=== PATIENT | male | born 1955 | race Caucasian/White ===

== ENCOUNTER 2021-01-04 14:46 | Outpatient (CLI) | payer MEDICARE, SELFPAY ==
--- NOTE | ~2021-01-04 | CT_ITS ---
EXAMINATION: CT soft tissue neck w con DATE: 01/04/2021 15:18 INDICATION: Localized enlarged lymph nodes TECHNIQUE: Computed tomography (CT) of the neck was performed with 75 mL Omnipaque-350 intravenous co ntrast. Automated exposure control and iterative reconstruction technique were employed. The dose-yolanda gth product was 374.45 mGy-cm. COMPARISON: None FINDINGS: Thyroid gland is unremarkable. Submandibular and parotid glands are normal and symmetric. 1.7 x 1.3 x 1.0 cm enhancing left ventricular mass with lower central attenuation suspicious for a centrally ne crotic lymph node which could be either suppurative or metastatic in etiology. There are additional s cattered normal-sized lymph nodes in the neck. No other masses identified. The vasculature is paten t and normal in caliber. Airway is unremarkable. Orbits are normal. The visualized portions of the p aranasal sinuses as well as the mastoid air cells and middle ear cavities are clear. 3 mm anterolisth esis C4 on C5 and 2 mm retrolisthesis C5 on C6. There is severe disc height loss with Modic type III sclerotic endplate changes at C5-C6. Moderate to severe disc height loss at C6-C7, moderate disc heig ht loss at C3-C4 and mild disc height loss at C4-C5 and C7-T1. 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 IMPRESSION: 1. 1.7 x 1.3 x 1.0 cm peripherally enhancing likely centrally necrotic left submandibular lymph node which could represent either a suppurative lymph node or metastatic disease. Reviewed, dictated and finalized at location A. IMPRESSION: 1. 1.7 x 1.3 x 1.0 cm peripherally enhancing likely centrally necrotic left sub mandibular lymph node which could represent either a suppurative lymph node or metastatic disease.
--- NOTE | ~2021-01-04 | CT_ITS ---
EXAMINATION: CT lung screening DATE: 01/04/2021 15:18 INDICATION: Z87.891 - Personal history of nicotine dependence TECHNIQUE: Computed tomography (CT) of the chest was performed without intravenous contrast. Addition al 3D reconstructions utilizing coronal maximum intensity projection (MIP) were performed. Automated exposure control and iterative reconstruction technique were employed. The dose-length product was 16 4.70 mGy-cm. COMPARISON: None FINDINGS: Lungs are clear with no suspicious pulmonary nodules, pneumonia or other pulmonary infiltrates, pulmo nary edema or pleural effusion. Heart size is normal. Atherosclerotic coronary artery calcification. No pericardial effusion. Thoracic aorta is normal in caliber. No pathologically enlarged thoracic lym phadenopathy. Bilateral gynecomastia. Minimal upper thoracic levocurvature. IMPRESSION: 1. Lung-RADS category 1: Negative. Continue annual screening with noncontrast low-dose chest CT in 12 months. Reviewed, dictated and finalized at location A. IMPRESSION: 1. Lung-RADS category 1: Negative. Continue annual screening with noncontrast l ow-dose chest CT in 12 months.
[2021-01-04 15:05] LABS: Estimated Glomerular Filt Rate > 60
== END 2021-01-04 14:47 ==
PROVIDERS: PCP Family Medicine; Visit Provider Physician Assistant Medical
DX: Z12.2 Encounter for screening for malignant neoplasm of respiratory organs (principal); Z87.891 Personal history of nicotine dependence; R59.0 Localized enlarged lymph nodes
CPT/HCPCS: 70491; 71271; Q9967

== ENCOUNTER 2021-01-16 08:10 | Outpatient (CLI) | payer MEDICARE, SELFPAY ==
--- NOTE | 2021-01-16 08:00 | ECG_ITS ---
Measurements Intervals [place] Rate: 82 P: 80 VA: 215 QRS: 26 QRSD: 98 T: 71 QT: 328 QTc: 384 Interpretive Statements SINUS RHYTHM WITH FIRST DEGREE AV BLOCK POSSIBLE LEFT ATRIAL ENLARGEMENT CANNOT RULE OUT SEPTAL INFARCT, AGE INDETERMINATE BASELINE WANDER- V4-V5 ABNORMAL ECG Electronically Signed On 01-16-2021 8:31:40 CDT by Renny Aponte D.O.
[2021-01-16 09:09] LABS: Anion Gap 7 mmol/L (8-16); Blood Urea Nitrogen 24 mg/dL (9-20); Carbon Dioxide 29 mmol/L (22-30); Chloride 100 mmol/L (98-107); Estimated Glomerular Filt Rate > 60; Glucose 210 mg/dL (75-110); Potassium 4.1 mmol/L (3.4-5.0); Sodium 136 mmol/L (137-145)
== END 2021-01-16 08:11 | disposition home or self-care (01) ==
LOC: ANHSURGERY 08:13
PROVIDERS: Anesthesiology; PCP Family Medicine; Visit Provider Otolaryngology
DX: E11.65 Type 2 diabetes mellitus with hyperglycemia (principal)
CPT/HCPCS: 36415; 80048; 93005

== ENCOUNTER → 2021-01-19 00:18 | Outpatient (CLI) | payer MEDICARE, SELFPAY ==
[2021-01-19 19:44] LABS: SARS-CoV-2 RNA PCR Negative
== END ==
PROVIDERS: PCP Family Medicine; Visit Provider Otolaryngology
DX: Z01.812 Encounter for preprocedural laboratory examination (principal); Z20.822 Contact with and (suspected) exposure to COVID-19
CPT/HCPCS: C9803; U0003; U0005

== ENCOUNTER 2021-01-22 02:34 | Day surgery (SDC) | payer MEDICARE, SELFPAY ==
[2021-01-11 13:39] VITALS: BMI 23.6
--- NOTE | 2021-01-21 10:18 | WPDANESEPPF ---
Anes - Initial Pre Proc Eval Procedure: Operation Date: 01/22/21 07:30 Proposed Procedures p Left Submandibular Lymph Node Biopsy - Octavio Addison MD Date/Time: 01/21/21 10:18 Surgeon: Octavio Addison MD Pre Op Diagnosis: enlarged lymph node left submandibular Patient Data Age: 65 Gender: M Height: 1.75 m Weight: 72.72 kg Allergies Allergy/AdvReac Type Severity Reaction Status Date / Time No Known Allergies Allergy Verified 01/22/21 06:22 Home Medications Medication Instructions Recorded Confirmed Type blood sugar diagnostic #100 each 11/01/19 01/15/21 Rx lancets 33 gauge #100 each 11/01/19 01/15/21 Rx empagliflozin 10 mg tablet 10 mg PO DAILY #90 tablet 01/02/20 01/22/21 Rx dulaglutide 1.5 mg/0.5 mL 1.5 mg SUB-Q WEEKLY #9 ml 08/22/20 01/22/21 Rx subcutaneous pen injector tadalafil 20 mg tablet 20 mg PO DAILY PRN #27 tablet 08/22/20 01/22/21 Rx doxycycline monohydrate 100 mg 100 mg PO BID #60 cap 01/15/21 01/22/21 Rx capsule ECG: Date of Service: 01/16/21 Procedure(s): CA 12 lead EKG Accession Number(s): [id number] cc: ~ Measurements Intervals [place] Rate: 82 P: 80 SC: 215 QRS: 26 QRSD: 98 T: 71 QT: 328 QTc: 384 Interpretive Statements SINUS RHYTHM WITH FIRST DEGREE AV BLOCK POSSIBLE LEFT ATRIAL ENLARGEMENT CANNOT RULE OUT SEPTAL INFARCT, AGE INDETERMINATE BASELINE WANDER- V4-V5 ABNORMAL ECG Electronically Signed On 01-16-2021 8:31:40 CDT by Renny Aponte D.O. Dictated By: Renny Aponte DO 01/16/21 0831 Patient hx anesthesia problems: none Family hx anesthesia problems: none PMFSH Past Medical History Medical History Alcoh dep NEC/NOS, unspec Chronic viral hepatitis Submandibular lymphadenopathy Type 2 diabetes mellitus with hyperglycemia Family History Family History Mother Diabetes mellitus Patient's mother is Family history of kidney disease Father Patient's father is Family history of cardiovascular disease Other Family history of mental disorder Social History Social History Smoking status: Former smoker Smoking end date: 10/08/06 Additional smoking assessment comments: STATES 1-2PK/DAY/30+ YRS, QUIT AGE 50 Alcohol intake: never Substance use: never Substance use type: does not use Living arrangements: with friend(s) Spiritual care concerns: No Anes - Eval Final PreProcedure Day of Procedure 01/21/21 10:18 Patient weight: normal Heart: regular rate and rhythm Lungs: clear to auscultation and normal air movement Airway: Mallampati scale class II Neurological: alert and oriented Last oral intake: >/= 8 hours ASA classification: III Emergent: no Anesthetic plan: proceed Anesthesia type and monitoring: general GIVS and LMA Informed Consent: The patient's anesthetic plan and its attendant risks and benefits were discussed with the patient/family/POA. Questions were solicited and answers provided to the satisfaction of the patient/family/POA.
[2021-01-22] VITALS (7 sets, daily range): BP systolic 112–151; BP diastolic 77–99; PULSE 61–71; RESP 12–16; TEMP 36.1–36.7; O2SAT 99–100
--- NOTE | 2021-01-22 05:32 | PM.HPGS ---
History of Present Illness History of Present Illness Consent: Risks, benefits, and alternatives have been discussed and questions answered. Patient agrees to proceed with procedure. Chief complaint: enlarged lymph node left submandibular Narrative: Oren De Los Santos is a 65 year old male Has an enlarged left submandibular node he has been treated with various courses of antibiotics he has had several episodes of acute infection and wisdom tooth on the left Review of Systems Review of Systems: All systems reviewed & are unremarkable except as noted in HPI and below PMFSH Past Medical History Medical History Alcoh dep NEC/NOS, unspec Chronic viral hepatitis Submandibular lymphadenopathy Type 2 diabetes mellitus with hyperglycemia Family History Family History Mother Diabetes mellitus Patient's mother is Family history of kidney disease Father Patient's father is Family history of cardiovascular disease Other Family history of mental disorder Social History Social History Smoking status: Former smoker Smoking end date: 10/08/06 Additional smoking assessment comments: STATES 1-2PK/DAY/30+ YRS, QUIT AGE 50 Alcohol intake: never Substance use: never Substance use type: does not use Living arrangements: with friend(s) Spiritual care concerns: No Meds Home Medications and Allergies Home Medications Medication Instructions Recorded Confirmed Type blood sugar diagnostic #100 each 11/01/19 01/15/21 Rx lancets 33 gauge #100 each 11/01/19 01/15/21 Rx empagliflozin 10 mg tablet 10 mg PO DAILY #90 tablet 01/02/20 01/15/21 Rx dulaglutide 1.5 mg/0.5 mL 1.5 mg SUB-Q WEEKLY #9 ml 08/22/20 01/15/21 Rx subcutaneous pen injector tadalafil 20 mg tablet 20 mg PO DAILY PRN #27 tablet 08/22/20 01/15/21 Rx clindamycin HCl See Rx Instructions .ROUTE .COMPLEX 01/11/21 01/15/21 History doxycycline monohydrate 100 mg 100 mg PO BID #60 cap 01/15/21 01/15/21 Rx capsule Allergies Allergy/AdvReac Type Severity Reaction Status Date / Time No Known Allergies Allergy Verified 01/11/21 13:37 Exam Narrative: Exam Narrative: chest clear heart with murmurs abdomen soft straight is negative a 2-3 cm left submandibular mass Assessment and Plan Additional Plan plan is it excisionally biopsy or excision of the left submandibular node
--- NOTE | 2021-01-22 05:33 | WPDHPUPDATE1 ---
History and Physical Update Update Date/Time: 01/22/21 05:33 History and Physical has been reviewed, including an updated exam of the patient. There are NO changes in the patient's condition. Risks, benefits, and alternatives have been discussed and questions answered. Patient agrees to proceed with procedure.
[2021-01-22] MEDS: LACTATED RINGERS 1,000 ML 30 ML IV CONT (06:36)
[2021-01-22 06:43] LABS: Glucose Point of Care 186 (65-105)
[2021-01-22] MEDS: ceFAZolin 2 GM/D5W 50 ML 2 GM/50 ML BAG IVPB (07:20)
[2021-01-22] MEDS: LIDO 1%/EPINEPHRINE 1:100,000 50 ML VIAL INFILTRATE (07:33)
--- NOTE | 2021-01-22 07:43 | SUR.OPER ---
Frozen section sent with Landon Peguero RN received in pathology by Fran
--- NOTE | 2021-01-22 07:55 | PM.PROC ---
Procedure Note - Detailed Date of procedure: 01/23/21 Pre-op diagnosis: enlarged lymph node left submandibular Post-op diagnosis: same Procedure performed: Excision submandibular lymph node or mass Description of procedure: Patient was prepped and draped in the usual fashion elliptical incision made injected xylocaine with adrenaline elliptical advanced as elevated the mass was removed scar on the deep deep area was removed hemostasis was obtained with bipolar electrocautery and closed in layers of chromic and Monocryl Anesthesia: GLMA Surgeon: Octavio Addison MD Estimated blood loss (mL): 10 Drains: No Packing: No Pathology: yes Complications: No immediate complications Condition: stable Disposition: PACU Findings: Infected lymph node
[2021-01-22 08:30] LABS: Glucose Point of Care 160 (65-105)
[2021-01-22] MEDS: fentaNYL CITRATE INJ (*CRX) 100 MCG/2 ML VIAL 25 MCG IV PUSH ×2 (08:36→08:39)
[2021-01-22] MEDS: oxyCODONE HCL (*CRX) 5 MG TAB IR PO (09:16)
== END 2021-01-22 09:38 | disposition home or self-care (01) ==
PROVIDERS: PCP Family Medicine; Visit Provider Otolaryngology
PROC: (CPT 21552; principal; 2021-01-22 07:30)
DX: K12.2 Cellulitis and abscess of mouth (principal); E11.9 Type 2 diabetes mellitus without complications; B18.9 Chronic viral hepatitis, unspecified; Z87.891 Personal history of nicotine dependence
CPT/HCPCS: 21552; 82948; 88305; 88331; A9270; C9803; J0690; J2250; J2405; J2704; J3010; J7120; U0003; U0005

== ENCOUNTER 2021-02-28 10:07 | Emergency (ER) | payer MEDICARE, SELFPAY ==
--- NOTE | 2021-02-28 10:12 | ED.WOUNDLAC ---
HPI - Wound/Laceration General Chief Complaint: Wound/Laceration Stated Complaint: KNEE LACERATION Time Seen by Provider: 02/28/21 10:25 Source: patient and RN notes reviewed Mode of arrival: ambulatory Limitations: no limitations History of Present Illness HPI narrative: 65-year-old male presents concern for laceration to left knee that he sustained just to arrival while using a die repairer trimmer dies. Reports he lacerated his knee with a die repairer trimmer dies. He denies any decreased strength, sensation, range of motion in the knee. He is not up-to-date on his tetanus vaccine. Extremity Location: Left: knee Related Data Home Medications Medication Instructions Recorded Confirmed aspirin [Baby Aspirin] 81 mg PO DAILY 02/28/21 02/28/21 Allergies Allergy/AdvReac Type Severity Reaction Status Date / Time No Known Allergies Allergy Verified 02/28/21 10:16 Review of Systems Review of Systems: Narrative: CONSTITUTIONAL: Denies malaise, chills, sweats, or fever. CARDIOVASCULAR: Denies chest pain, palpitations, or edema. RESPIRATORY: Denies cough or dyspnea. SKIN: Reports laceration to the left knee MUSCULOSKELETAL: Denies musculoskeletal pain, decreased strength, decreased range of motion NEUROLOGIC: Denies numbness, weakness All systems reviewed & are unremarkable except as noted in HPI and below PMFSH Past Medical History Medical History Alcoh dep NEC/NOS, unspec Chronic viral hepatitis Submandibular lymphadenopathy Type 2 diabetes mellitus with hyperglycemia Family History Family History Mother Diabetes mellitus Patient's mother is Family history of kidney disease Father Patient's father is Family history of cardiovascular disease Other Family history of mental disorder Social History Social History Smoking status: Former smoker Smoking end date: 10/08/06 Additional smoking assessment comments: STATES 1-2PK/DAY/30+ YRS, QUIT AGE 50 Alcohol intake: never Substance use: never Substance use type: does not use Spiritual care concerns: No Comments At time of signature, agree with nursing past medical, surgical, social and family history. There is no relevant family history pertinent to the presenting complaint Exam Narrative: Exam Narrative: GENERAL: Well-appearing, well-nourished, and in no acute distress. HEAD: Normocephalic, atraumatic. EYES: PERRLA, conjunctivae clear, and EOMI. ENT: Mucous membranes moist. Oropharynx without edema, erythema or lesions. NECK: Supple. No lymphadenopathy CHEST: Clear to auscultation. No respiratory distress. HEART: Regular rate and rhythm. SKIN: Warm, dry. 2 cm irregular laceration into the subcutaneous tissue noted to the lateral edge of the left knee, gaping. Bleeding noted MUSCULOSKELETAL: Regular strength, sensation, range of motion to left knee NEURO: Alert and oriented x3. PSYCH: Normal mood and affect Course Course Emergency Course: Patient is aware of diagnosis, understands and agrees to treatment plan. Anticipatory guidance given. Patient agrees to follow-up as directed and is aware of reasons to seek care at the emergency department. Portions of this record may have been created with voice recognition software Vital Signs Vital signs: Vital Signs Temperature 97.6 F 02/28/21 10:18 Pulse Rate 81 02/28/21 10:18 Respiratory Rate 20 02/28/21 10:18 Blood Pressure 121/75 02/28/21 10:18 Pulse Oximetry 98 02/28/21 10:18 Temperature 97.6 F 02/28/21 10:18 Pulse Rate 81 02/28/21 10:18 Respiratory Rate 20 02/28/21 10:18 Blood Pressure 121/75 02/28/21 10:18 Pulse Oximetry 98 02/28/21 10:18 Reviewed. Procedures Laceration Laceration 1: Date: 02/28/21 Site: lower extremity Description: irregular Depth: simp
[2021-02-28 10:18] VITALS: BP 121/75; PULSE 81; RESP 20; TEMP 36.4; O2SAT 98
[2021-02-28] MEDS: TETANUS,DIPHTHERIA,AC PERTUSSIS ADULT (0.5 ML) BOOSTRIX IM (10:37)
== END 2021-02-28 11:21 | disposition home or self-care (01) ==
PROVIDERS: Emergency Provider Nurse Practitioner; PCP Family Medicine
DX: S81.012A Laceration without foreign body, left knee, initial encounter (principal); W29.3XXA Contact with powered garden and outdoor hand tools and machinery, initial encounter; Z23 Encounter for immunization; Z87.891 Personal history of nicotine dependence; E11.9 Type 2 diabetes mellitus without complications
CPT/HCPCS: 12001; 90471; 90715; 99212; G0463

== ENCOUNTER 2021-06-14 14:44 | Outpatient (CLI) | payer MEDICARE, SELFPAY ==
--- NOTE | ~2021-06-14 | CT_ITS ---
EXAMINATION: CT soft tissue neck wo con DATE: 06/14/2021 15:28 INDICATION: Hypertrophy of tonsils. TECHNIQUE: Computed tomography (CT) of the neck was performed without intravenous contrast. Automated exposure control and iterative reconstruction technique were employed. The dose-length product was 6 05.66 mGy-cm. COMPARISON: Neck CT 01/04/2021 FINDINGS: There is a lipoma in right posterior scalp. There are no pathologically enlarged lymph node s. The palatine tonsils are unremarkable. There is mild mucosal thickening in the paranasal sinuses. The mastoid air cells are normal. There is severe cervical spondylosis. IMPRESSION: 1. No abscess. Reviewed, dictated and finalized at location A. IMPRESSION: 1. No abscess.
== END 2021-06-14 14:45 | disposition home or self-care (01) ==
PROVIDERS: PCP Family Medicine; Visit Provider Otolaryngology
DX: J35.1 Hypertrophy of tonsils (principal)
CPT/HCPCS: 70490

== ENCOUNTER 2021-07-18 15:44 | Emergency (ER) | payer MEDICARE, SELFPAY ==
--- NOTE | 2021-07-18 15:52 | ED.EYEPROB ---
HPI - Eye Problem General Chief complaint: Eye Problems Stated complaint: EYE INJURY Time Seen by Provider: 07/18/21 15:52 Source: patient and RN notes reviewed Mode of arrival: ambulatory Limitations: no limitations History of Present Illness HPI Narrative: 66-year-old male presents with concern for right eye injury. He reports yesterday while deer hunting he poked himself in the eye with a stick on accident. He reports pain, light sensitivity, watery drainage, blurry vision. He denies crusty drainage, purulent discharge. Denies itching. Denies intervention MD chief complaint: eye injury Related Data Home Medications Medication Instructions Recorded Confirmed aspirin [Baby Aspirin] 81 mg PO DAILY 02/28/21 07/18/21 Allergies Allergy/AdvReac Type Severity Reaction Status Date / Time iohexol Allergy Other Verified 07/18/21 15:51 [From contrast - CT, X-RAY] Review of Systems Review of Systems: CONSTITUTIONAL: Denies malaise, chills, sweats, or fever. EYES: Reports right eye blurry vision, pain, redness ENT: Reports rhinorrhea SKIN: Denies lacerations, abrasion All systems reviewed & are unremarkable except as noted in HPI and below PMFSH Past Medical History Medical History Alcoh dep NEC/NOS, unspec Chronic viral hepatitis Submandibular lymphadenopathy Type 2 diabetes mellitus with hyperglycemia Family History Family History Mother Diabetes mellitus Patient's mother is Family history of kidney disease Father Patient's father is Family history of cardiovascular disease Other Family history of mental disorder Social History Social History Smoking end date: 10/08/06 Additional smoking assessment comments: STATES 1-2PK/DAY/30+ YRS, QUIT AGE 50 Alcohol intake: never Substance use: never Substance use type: does not use Spiritual care concerns: No Comments At time of signature, agree with nursing past medical, surgical, social and family history. There is no relevant family history pertinent to the presenting complaint Exam Narrative: GENERAL: Well-appearing, well-nourished, and in no acute distress. HEAD: Normocephalic, atraumatic. EYES: PERRLA, and EOMI. right sclera injected, conjunctivae normal, corneal abrasion noted upon Luque lamp exam, see note ENT: Nares clear. Mucous membranes moist. NECK: Supple. CHEST: No respiratory distress. Speaks in full sentences. HEART: Regular rate and rhythm. SKIN: Warm, dry, no visible rash. NEURO: Alert and oriented x3. PSYCH: Normal mood and affect Course Course Emergency Course: Patient is aware of diagnosis, understands and agrees to treatment plan. Anticipatory guidance given. Patient agrees to follow-up as directed and is aware of reasons to seek care at the emergency department. Portions of this record may have been created with voice recognition software Vital Signs Vital signs: Reviewed. Procedures Other Procedure Procedure 1: Other Procedure: Tetracaine 1 gtt instilled in right eye, fluorescein stain applied. Corneal abrasion noted upon luque lamp exam above the pupil. Eye washed with NS 100 ml. No foreign bodies or Antoine sign noted. MDM - Eye Problem MDM Narrative Medical decision making narrative: My consideration of the following conditions may be warranted for the presenting problem, they are not final diagnoses: Bacterial conjunctivitis, allergic conjunctivitis, viral conjunctivitis, foreign body, blepharitis, chalazion, hordeolum, corneal abrasion, preseptal cellulitis, orbital cellulitis. No evidence of proptosis, ophthalmoplegia, vision loss, pain with eye movement. Exam findings show no acute concerns or changes; patient is non-toxic appearing and is in no distress. Patient is appropriate for outpatient treatment and follow-up.
[2021-07-18 15:54] VITALS: BP 119/83; PULSE 75; RESP 16; TEMP 36.9; O2SAT 99
== END 2021-07-18 16:18 | disposition home or self-care (01) ==
PROVIDERS: Emergency Provider Nurse Practitioner; PCP Family Medicine
DX: S05.01XA Injury of conjunctiva and corneal abrasion without foreign body, right eye, initial encounter (principal); W22.8XXA Striking against or struck by other objects, initial encounter; E11.9 Type 2 diabetes mellitus without complications; Z79.82 Long term (current) use of aspirin
CPT/HCPCS: 99213; A9270; G0463

== ENCOUNTER 2021-10-14 11:21 | Outpatient (CLI) | payer MEDICARE, SELFPAY ==
[2021-10-14 12:01] LABS: Anion Gap 6 mmol/L (8-16); Blood Urea Nitrogen 20 mg/dL (9-20); Calcium 9.4 mg/dL (8.4-10.2); Carbon Dioxide 30 mmol/L (22-30); Chloride 97 mmol/L (98-107); Estimated Glomerular Filt Rate > 60; Glucose 266 mg/dL (65-110); Potassium 4.1 mmol/L (3.4-5.0); Sodium 133 mmol/L (137-145)
== END 2021-10-14 11:22 | disposition home or self-care (01) ==
LOC: ANHSURGERY 11:27
PROVIDERS: Anesthesiology; PCP Family Medicine; Visit Provider Otolaryngology
DX: E11.65 Type 2 diabetes mellitus with hyperglycemia (principal); Z01.818 Encounter for other preprocedural examination
CPT/HCPCS: 36415; 80048

== ENCOUNTER 2021-10-15 00:27 | Day surgery (SDC) | payer MEDICARE, SELFPAY ==
[2021-10-09 13:14] VITALS: BMI 22.9
--- NOTE | 2021-10-09 13:20 | PC.NURSE ---
Report to the Outpatient Waiting Room, entrance under the green pavilion located off [facility], at time ___614____ on date __10/15/21 . OR Time: ___814 . - You will be asked a series of questions to screen for COVID 19 for your protection. - A mask is required within the hospital. - No visitors are allowed at this time. Preoperative COVID Testing Requirements: No COVID Test needed if: (proof is required; if not received patient will have Rapid Test prior to entry) - Patient has received COVID Vaccine at least 14 days prior to procedure date or - Patient has positive COVID test result within last 90 days of surgery date. COVID Test needed if above criteria is not met If not COVID vaccinated a COVID test must be conducted within 72 hours of surgery and patient is asked to isolate self from time of testing until procedure. You will go to the [facility] for your COVID testing. The [facility] is located at the corner of [address] from [facility]. You will only be called if COVID results are positive and your surgeon may reschedule your elective surgery date. Patients may have clear liquids (water, carbonated beverages, clear teas, apple juice) until 3 hours prior to surgery with a maximum of 20 ounces.([id number]) - No food from midnight until time of surgery - Infants may have breast milk until 4 hours before surgery, formula 6 hours prior to surgery. - Children will be allowed to drink immediately following surgery. If applicable, please bring a bottle or sippy cup to assist with drinking. Juice, water, soda, and popsicles are readily available. For infants on formula, please bring formula the day of surgery. Pacifiers are allowed. Take the following medications with a SIP of water the morning of surgery: _NONE__ Medications to discontinue per physician _ASPIRIN INSTRUCTED BY DR. BARNETT__ Date to take last dose Please no make-up, nail luxembourger, hairspray, perfume, deodorant, or body powder the day of surgery. No jewelry (including any body piercings) or valuables the day of surgery, leave them at home. Please take a shower or bath the night before, or the morning of, surgery with an antibacterial soap. Wear comfortable, loose fitting clothing. Children are encouraged to wear pajamas. - Jewelry must be removed prior to entering the operating room. Rings and piercings that are not removed may be cut off. - The hospital will not accept responsibility for valuables. - Please leave all valuables, including medications, at home the day of surgery. If you are going home after surgery, a licensed hydraulic lift driver must drive you home. - NO public transportation without another adult. - We recommend that an adult stay with you for 24 hours following discharge. - We also recommend that you do not drive, make important decision, drink alcoholic beverages, or take any drugs that were not prescribed by your health care provider for at least 24 hours after your discharge time. For Pediatric surgeries, we recommend two adults accompany the child home (only one inside the building at this time). Follow any additional instructions given to you from your surgeon. Telephone instructions given to ___PT and asked if any additional questions and then verbalized understanding. Patient advised to call surgeon office or pre surgery nurse liaison [phone] if any additional questions.
--- NOTE | 2021-10-14 06:42 | PM.HPGS ---
History of Present Illness History of Present Illness Consent: Risks, benefits, and alternatives have been discussed and questions answered. Patient agrees to proceed with procedure. Chief complaint: hypertrophic tonsils Narrative: Oren De Los Santos is a 66 year old male with a long history of asymmetric enlargement of his tonsils pain and unresponsive to prolonged antibiot Review of Systems Review of Systems: All systems reviewed & are unremarkable except as noted in HPI and below PMFSH Past Medical History Medical History Alcoh dep NEC/NOS, unspec Chronic viral hepatitis Submandibular lymphadenopathy Type 2 diabetes mellitus with hyperglycemia Family History Family History Mother Diabetes mellitus Patient's mother is Family history of kidney disease Father Patient's father is Family history of cardiovascular disease Other Family history of mental disorder Social History Social History Smoking status: Former smoker Tobacco type: cigarettes Second hand tobacco smoke exposure: No Smoking end date: 10/08/06 Additional smoking assessment comments: STATES SMOKED 1-2PK/DAY/30YRS-QUIT AGE 50 Alcohol intake: never Substance use: never Substance use type: does not use Spiritual care concerns: No Comments medical family social history unremarkable Meds Home Medications and Allergies Home Medications Medication Instructions Recorded Confirmed Type blood sugar diagnostic #100 each 11/01/19 10/09/21 Rx lancets 33 gauge #100 each 11/01/19 10/09/21 Rx aspirin [Baby Aspirin] 81 mg PO DAILY 02/28/21 10/09/21 History empagliflozin 10 mg tablet See Rx Instructions .ROUTE 03/27/21 10/09/21 Rx .COMPLEX #90 tablet tadalafil 20 mg tablet 20 mg PO DAILY PRN #60 tablet 03/27/21 10/09/21 Rx dulaglutide 1.5 mg/0.5 mL 1.5 mg SUB-Q WEEKLY #9 ml 10/02/21 10/09/21 Rx subcutaneous pen injector Allergies Allergy/AdvReac Type Severity Reaction Status Date / Time iohexol Allergy Other Verified 10/09/21 13:09 [From contrast - CT, X-RAY] Exam Narrative: asymmetric enlargement of his tonsils chest clear heart without murmurs abdomen soft Assessment and Plan Additional Plan plan tonsillectomy
--- NOTE | 2021-10-14 09:18 | W.PM.PROC2 ---
Procedure Note - Detailed Date of Procedure 10/14/21 Pre-op Diagnosis hypertrophic tonsils Surgeon Octavio Addison MD
[2021-10-15] VITALS (8 sets, daily range): BP systolic 125–169; BP diastolic 81–97; PULSE 60–79; RESP 14–20; TEMP 36.7–36.9; O2SAT 98–100; BMI 23.1
--- NOTE | 2021-10-15 05:59 | WPDHPUPDATE1 ---
History and Physical Update Update Date/Time: 10/15/21 05:59 History and Physical has been reviewed, including an updated exam of the patient. There are NO changes in the patient's condition. Risks, benefits, and alternatives have been discussed and questions answered. Patient agrees to proceed with procedure.
[2021-10-15] MEDS: ACETAMINOPHEN 500 MG TABLET 1000 MG PO (07:05)
--- NOTE | 2021-10-15 07:15 | WPDANESEPPF ---
Anes - Initial Pre Proc Eval Procedure: Operation Date: 10/15/21 08:45 Proposed Procedures p Tonsillectomy - Octavio Addison MD Date/Time: 10/15/21 07:15 Surgeon: Octavio Addison MD Pre Op Diagnosis: hypertrophic tonsils Patient Data Age: 66 Gender: M Height: 1.75 m Weight: 71.2 kg Last Vital Signs Temp 36.7 C 10/15/21 07:11 Pulse 79 10/15/21 07:11 Resp 20 10/15/21 07:11 BP 143/81 H 10/15/21 07:11 Pulse Ox 98 10/15/21 07:11 Allergies Allergy/AdvReac Type Severity Reaction Status Date / Time iohexol Allergy Other Verified 10/15/21 06:53 [From contrast - CT, X-RAY] Home Medications Medication Instructions Recorded Confirmed Type blood sugar diagnostic #100 each 11/01/19 10/09/21 Rx lancets 33 gauge #100 each 11/01/19 10/09/21 Rx aspirin [Baby Aspirin] 81 mg PO DAILY 02/28/21 10/15/21 History empagliflozin 10 mg tablet See Rx Instructions .ROUTE 03/27/21 10/15/21 Rx .COMPLEX #90 tablet tadalafil 20 mg tablet 20 mg PO DAILY PRN #60 tablet 03/27/21 10/15/21 Rx dulaglutide 1.5 mg/0.5 mL 1.5 mg SUB-Q WEEKLY #9 ml 10/02/21 10/15/21 Rx subcutaneous pen injector acetaminophen 300 mg-codeine 30 12.5 ml PO Q6H PRN #500 ml 10/14/21 Rx mg/12.5 mL (12.5 mL) oral solution Patient hx anesthesia problems: none Family hx anesthesia problems: none Results Review: All pre-operative results and documents have been reviewed as part of the pre-operative evaluation. [facility] Past Medical History Medical History Alcoh dep NEC/NOS, unspec Chronic viral hepatitis Submandibular lymphadenopathy Type 2 diabetes mellitus with hyperglycemia Surgical History Surgical History (Updated 10/15/21 @ 07:16 by Oren Damon MD) S/P appendectomy Family History Family History Mother Diabetes mellitus Patient's mother is Family history of kidney disease Father Patient's father is Family history of cardiovascular disease Other Family history of mental disorder Social History Social History Smoking status: Former smoker Tobacco type: cigarettes Second hand tobacco smoke exposure: No Smoking end date: 10/08/06 Additional smoking assessment comments: STATES SMOKED 1-2PK/DAY/30YRS-QUIT AGE 50 Alcohol intake: never Substance use: never Substance use type: does not use Living arrangements: alone Spiritual care concerns: No Anes - Eval Final PreProcedure Day of Procedure 10/15/21 07:15 Patient weight: normal Heart: regular rate and rhythm Lungs: clear to auscultation Airway: Mallampati scale class II Neurological: alert and oriented Last oral intake: >/= 8 hours ASA classification: II Emergent: no Anesthetic plan: proceed Anesthesia type and monitoring: general ETT and standard monitoring Results Review: All pre-operative results and documents have been reviewed as part of the pre-operative evaluation. Informed Consent: The patient's anesthetic plan and its attendant risks and benefits were discussed with the patient/family/POA. Questions were solicited and answers provided to the satisfaction of the patient/family/POA.
[2021-10-15] MEDS: LACTATED RINGERS 1,000 ML 30 ML IV CONT ×2 (07:22→09:14)
[2021-10-15 07:29] LABS: Glucose Point of Care 184 mg/dl (65-105)
--- NOTE | 2021-10-15 07:30 | SUR.PREOP ---
0650; PT VERY UPSET ABOUT PAIN MED PRESCRIPTION BEING UNAVAILABLE YESTERDAY. INFORMED PT HE WILL NEED TO SPEAK TO DR BARNETT THIS AM. PT VERBALIZED UNDERSTANDING.
[2021-10-15] MEDS: LIDO 1%/EPINEPHRINE 1:100,000 50 ML VIAL INFILTRATE (09:01)
--- NOTE | 2021-10-15 09:09 | W.PM.PROC2 ---
Procedure Note - Detailed Date of Procedure 10/15/21 Pre-op Diagnosis hypertrophic tonsils Post-op Diagnosis same Procedure Performed Tonsillectomy Surgeon Octavio Addison MD Anesthesia general Description of Procedure Patient was prepped and draped in usual fashion after induction of anesthesia. The McIvor mouth gag was inserted. The tonsils were removed dissection technique hemostasis was obtained electrocautery. The mouth was inspected for bleeding. When stabilized patient was awaken and brought to the recovery room in good condition. Drains No Packing No Pathology none sent Complications No immediate complications Condition stable Disposition PACU
[2021-10-15 09:30] LABS: Glucose Point of Care 153 mg/dl (65-105)
[2021-10-15] MEDS: fentaNYL CITRATE INJ (*CRX) 100 MCG/2 ML VIAL 25 MCG IV PUSH ×5 (09:30→09:50)
[2021-10-15] MEDS: ONDANSETRON INJ 4 MG/2 ML VIAL IV PUSH (09:57)
--- NOTE | 2021-10-15 10:34 | SUR.PHASEII ---
PHARMACY CALLED TO VERIFY THAT IT HAS SUFFICIENT PRESCRIBED PAIN MED WHICH IT DOES. PATIENT AWARE.
[2021-10-15] MEDS: Acetaminophen/HYDROcodone ELIXIR (*CRX) 7.5 MG/15 ML UDC PO (10:44)
== END 2021-10-15 11:28 | disposition home or self-care (01) ==
PROVIDERS: PCP Family Medicine; Visit Provider Otolaryngology
PROC: (CPT 42826; principal; 2021-10-15 08:45)
DX: C09.9 Malignant neoplasm of tonsil, unspecified (principal); J35.01 Chronic tonsillitis; E11.9 Type 2 diabetes mellitus without complications; Z79.84 Long term (current) use of oral hypoglycemic drugs; Z79.899 Other long term (current) drug therapy; Z87.891 Personal history of nicotine dependence
CPT/HCPCS: 42826; 36415; 80048; 82948; 88304; 88342; A9270; J0330; J1100; J2250; J2405; J2704; J3010; J7120

== ENCOUNTER 2021-10-18 12:16 | Emergency (ER) | payer MEDICARE, SELFPAY ==
[2021-10-18 12:22] VITALS: BP 162/96; PULSE 80; RESP 18; TEMP 36.6; O2SAT 98
[2021-10-18 12:23] VITALS: BP 162/96
--- NOTE | 2021-10-18 12:29 | ED.GENADULT ---
HPI - General Adult General Chief complaint: Unspecified Stated complaint: cant swallow Time Seen by Provider: 10/18/21 12:27 Source: patient Mode of arrival: ambulatory Limitations: no limitations History of Present Illness HPI narrative: Patient is a 66-year-old male complaining of being dehydrated due to difficulty swallowing ever since he had his tonsillectomy, unable to drink or eat anything times 4 days. Patient was told by his doctor to go to the emergency room for IV fluids. Patient denies any nausea, vomiting, chest pain, shortness of breath, abdominal pain, fever or chills. Related Data Home Medications Medication Instructions Recorded Confirmed aspirin 81 mg PO DAILY 02/28/21 10/15/21 Allergies Allergy/AdvReac Type Severity Reaction Status Date / Time iohexol Allergy Other Verified 10/18/21 12:26 [From contrast - CT, X-RAY] Review of Systems Review of Systems: All systems reviewed & are unremarkable except as noted in HPI and below Constitutional: Constitutional: Denies body ache(s), Denies chills, Denies excessive sweating, Denies fatigue, Denies fever(s), Denies headache(s), Denies lethargy, Denies malaise, Denies weakness and Denies weight loss Eyes: Eyes: Denies blurry vision, Denies change in vision and Denies loss of vision ENT: Denies dizziness, Denies ear discharge, Denies headache(s), Denies lip swelling, Denies epistaxis, Denies nasal congestion, Denies neck pain, Denies throat swelling and Denies tongue swelling Cardiovascular: Cardiovascular: Denies chest pain, Denies chest pain at rest, Denies chest pain with activity, Denies diaphoresis, Denies rapid heart rate, Denies edema, Denies irregular heart rhythm, Denies lightheadedness, Denies palpitations, Denies dyspnea and Denies dyspnea on exertion Respiratory: Respiratory: Denies chest congestion, Denies cough, Denies hemoptysis, Denies dyspnea and Denies dyspnea on exertion Gastrointestinal: Gastrointestinal: Denies abdominal pain, Denies melena, Denies hematochezia, Denies diarrhea, Denies nausea, Denies vomiting and Denies hematemesis Musculoskeletal: Musculoskeletal: Denies abnormal gait, Denies deformity, Denies joint swelling, Denies limited range of motion, Denies neck pain and Denies numbness Neurologic: Denies Abnormal speech present, Denies abnormal gait, Denies confusion, Denies dizziness, Denies headache(s), Denies focal weakness, Denies loss of vision, Denies numbness, Denies Other visual disturbances, Denies Sensory deficit (Neuro) and Denies weakness Psychiatric: Psychiatric: Denies confusion, Denies depression, Denies auditory hallucinations, Denies homicidal ideation and Denies suicidal ideation Endocrine: Endocrine: Denies cold intolerance, Denies excessive sweating, Denies fatigue, Denies heat intolerance and Denies palpitations Hematologic/Lymphatic: Hematologic/Lymphatic: Denies easy bleeding and Denies easy bruising Allergic/Immunologic: Allergic/Immunologic: Denies lip swelling, Denies throat swelling and Denies tongue swelling PMFSH Past Medical History Medical History (Updated 10/18/21 @ 15:15 by Tio Garcia MD) Alcoh dep NEC/NOS, unspec Chronic viral hepatitis Submandibular lymphadenopathy Type 2 diabetes mellitus with hyperglycemia Surgical History Surgical History (Updated 10/15/21 @ 10:27 by Ru Moses MD) History of tonsillectomy S/P appendectomy Family History Family History Mother Diabetes mellitus Patient's mother is Family history of kidney disease Father Patient's father is Family history of cardiovascular disease Other Family history of mental disorder Social History Social History Smoking status: Former smoker Tobacco type: cigarettes Second hand tobacco smoke exposure: No Smoking end date: 10/08/06 Additional smoking assessment co
[2021-10-18] MEDS: SODIUM CHLORIDE 0.9% IV 1,000 ML 999 ML IV CONT (12:33)
[2021-10-18 12:40] LABS: Basophils Percent Auto 0.5 % (0.2-1.2); Eosinophils Absolute Auto 0.1 K/mm3 (0-0.3); Eosinophils Percent Auto 0.9 % (0-4.4); Hematocrit 51.6 % (42.0-52.0); Hemoglobin 17.9 g/dL (14.0-18.0); Immature Granulocyte Absolute 0.01 K/mm3 (0.00-0.031); Immature Granulocyte Percent A 0.1 % (0-0.5); Lymphocytes Absolute Auto 1.49 K/mm3 (0.9-3.2); Lymphocytes Percent Auto 17.5 % (18.3-44.2); Mean Corpuscular HGB Conc 34.7 g/dl (32-36); Mean Corpuscular Hemoglobin 31.6 pg (26-34); Mean Platelet Volume 9.9 fl (7.4-10.4); Monocytes Percent Auto 11.5 % (2.6-8.5); Neutrophils Absolute Auto 5.9 K/mm3 (1.3-6.7); Neutrophils Percent Auto 69.5 % (45.5-73.1); Platelet Count Result 239 k/mm3 (150-375); Red Blood Count 5.67 M/mm3 (4.6-6.20); Red Cell Distribution Width 12.4 % (11.5-14.5); White Blood Count 8.5 K/mm3 (4.5-10.0)
[2021-10-18 12:55] LABS: Alanine Aminotransferase 20 U/L (4-50); Albumin Level 4.7 g/dL (3.5-5.1); Alkaline Phosphatase 69 U/L (38-126); Anion Gap 13 mmol/L (8-16); Aspartate Amino Transferase 27 U/L (17-59); Bilirubin,Total 2.6 mg/dL (0.2-1.3); Blood Urea Nitrogen 20 mg/dL (9-20); Calcium 9.6 mg/dL (8.4-10.2); Carbon Dioxide 25 mmol/L (22-30); Chloride 93 mmol/L (98-107); Estimated CRCL calculation 66 ml/min; Estimated Glomerular Filt Rate > 60; Glucose 183 mg/dL (65-110); Potassium 3.9 mmol/L (3.4-5.0); Sodium 131 mmol/L (137-145)
[2021-10-18 13:01] VITALS: BP 141/91; PULSE 89; RESP 16; O2SAT 98
[2021-10-18] MEDS: DEXAMETHASONE SOD PHOS INJ 4 MG/ML VIAL 10 MG IV PUSH (13:59)
[2021-10-18 14:01] VITALS: BP 145/90; PULSE 80; RESP 16; O2SAT 98
[2021-10-18] MEDS: LACTATED RINGERS 1,000 ML 999 ML IV CONT (14:28)
[2021-10-18 15:26] VITALS: BP 153/90; PULSE 78; RESP 18; O2SAT 98
== END 2021-10-18 15:36 | disposition home or self-care (01) ==
PROVIDERS: Emergency Provider Emergency Medicine; PCP Family Medicine
DX: R13.10 Dysphagia, unspecified (principal); E86.0 Dehydration; Z98.890 Other specified postprocedural states; E11.65 Type 2 diabetes mellitus with hyperglycemia; B18.9 Chronic viral hepatitis, unspecified; Z87.891 Personal history of nicotine dependence; Z79.899 Other long term (current) drug therapy; Z79.84 Long term (current) use of oral hypoglycemic drugs; Z79.82 Long term (current) use of aspirin
CPT/HCPCS: 36415; 80053; 85025; 96361; 96374; 99284; J1100; J7030; J7120

== ENCOUNTER 2022-03-24 20:53 | Emergency (ER) | payer MEDICARE, SELFPAY ==
[2022-03-24 20:56] VITALS: BP 119/85; PULSE 90; RESP 18; TEMP 36.4; O2SAT 98
[2022-03-24 21:32] LABS: Basophils Percent Auto 0.6 % (0.2-1.2); Eosinophils Absolute Auto 0.1 K/mm3 (0-0.3); Eosinophils Percent Auto 1.9 % (0-4.4); Hemoglobin 17.2 g/dL (14.0-18.0); Immature Granulocyte Absolute 0.03 K/mm3 (0.00-0.031); Immature Granulocyte Percent A 0.5 % (0-0.5); Lymphocytes Absolute Auto 0.52 K/mm3 (0.9-3.2); Lymphocytes Percent Auto 8.2 % (18.3-44.2); Mean Corpuscular HGB Conc 33.7 g/dl (32-36); Mean Corpuscular Hemoglobin 30.7 pg (26-34); Mean Corpuscular Volume 91.1 fl (80-100); Mean Platelet Volume 10.3 fl (7.4-10.4); Monocytes Absolute Auto 0.7 K/mm3 (0.1-0.6); Monocytes Percent Auto 10.8 % (2.6-8.5); Platelet Count Result 221 k/mm3 (150-375); White Blood Count 6.4 K/mm3 (4.5-10.0)
[2022-03-24 21:42] LABS: Alanine Aminotransferase 24 U/L (6-50); Albumin Level 4.6 g/dL (3.5-5.1); Alkaline Phosphatase 59 U/L (38-126); Anion Gap 12 mmol/L (8-16); Aspartate Amino Transferase 33 U/L (17-59); Bilirubin,Total 2.6 mg/dL (0.2-1.3); Blood Urea Nitrogen 18 mg/dL (9-20); Calcium 9.2 mg/dL (8.4-10.2); Carbon Dioxide 25 mmol/L (22-30); Chloride 98 mmol/L (98-107); Creatine Kinase 117 U/L (55-170); Estimated CRCL calculation 49 ml/min; Estimated Glomerular Filt Rate > 60; Glucose 64 mg/dL (65-110); Potassium 4.2 mmol/L (3.4-5.0); Sodium 135 mmol/L (137-145)
--- NOTE | 2022-03-24 21:43 | ED.GENADULT ---
HPI - General Adult General Chief complaint: Unspecified Stated complaint: dehydration post radiation treatments Time Seen by Provider: 03/24/22 21:04 Source: patient Mode of arrival: ambulatory Limitations: no limitations History of Present Illness HPI narrative: This is a 67 year old male that presents to the ER for dehydration. Reports history of throat cancer. He is currently undergoing radiation therapy. His last treatment was 3 days ago. Since his last treatment he has been unable to eat and drink properly. He has a horrible taste in his throat. Every time he tries to eat or drink it makes him want to throw up. He reported to the ER for further evaluation and management of possible dehydration. Denies fever. Related Data Home Medications Medication Instructions Recorded Confirmed empagliflozin 10 mg tablet 10 mg PO DAILY 01/16/22 03/21/22 (Jardiance) Allergies Allergy/AdvReac Type Severity Reaction Status Date / Time iohexol Allergy Other Verified 03/24/22 22:09 [From contrast - CT, X-RAY] Review of Systems Review of Systems: CONSTITUTIONAL: Denies fever ENT: Reports sore throat GASTROINTESTINAL: Reports nausea, vomiting All systems reviewed & are unremarkable except as noted in HPI and below PMFSH Past Medical History Medical History Alcoh dep NEC/NOS, unspec Chronic viral hepatitis Submandibular lymphadenopathy Type 2 diabetes mellitus with hyperglycemia Surgical History Surgical History History of tonsillectomy S/P appendectomy Family History Family History Mother Diabetes mellitus Patient's mother is Family history of kidney disease Father Patient's father is Family history of cardiovascular disease Other Family history of mental disorder Social History Social History Smoking packs per day: 1 Smoking cigarettes per day: 20.0 Years smoked: 20 Smoking pack-years: 20.00 Smoking status: Former smoker Tobacco type: cigarettes Second hand tobacco smoke exposure: No Smoking end date: 10/08/06 Additional smoking assessment comments: STATES SMOKED 1-2PK/DAY/30YRS-QUIT AGE 50 Alcohol intake: never Substance use: never Substance use type: does not use Spiritual care concerns: No Exam Narrative: GENERAL: Well-appearing, thin, and in no acute distress. HEAD: Normocephalic, atraumatic. EYES: EOMI. ENT: Nares clear, no rhinorrhea or epistaxis. Mucous membranes moist. Oropharynx with mild erythema NECK: Supple. No adenopathy or masses. CHEST: Clear to auscultation. No respiratory distress. No wheezes rales or rhonchi HEART: Regular rate and rhythm. No murmur heard. Normal peripheral pulses. EXTREMITIES: Normal range of motion. No edema. SKIN: Warm, dry, no rash. NEURO: No focal deficits. Alert and oriented x3. PSYCH: Normal mood and affect Course Vital Signs Vital signs: Vital Signs Temperature 97.6 F 03/24/22 20:56 Pulse Rate 90 03/24/22 20:56 Respiratory Rate 18 03/24/22 20:56 Blood Pressure 119/85 03/24/22 20:56 Pulse Oximetry 98 03/24/22 20:56 Oxygen Delivery Room Air 03/24/22 20:56 Temperature 97.6 F 03/24/22 20:56 Pulse Rate 70 03/24/22 21:55 Respiratory Rate 18 03/24/22 21:55 Blood Pressure 118/79 03/24/22 21:55 Pulse Oximetry 97 03/24/22 21:55 Oxygen Delivery Room Air 03/24/22 20:56 Medical Decision Making [facility] Narrative Medical decision making narrative: Patient presents to the ER for possible dehydration. History of throat cancer, is currently undergoing radiation therapy. Has not been eating or drinking much the last couple of days. His vitals are stable. CBC without concerning findings. Metabolic panel with normal-appearing kidney function. No concerning
[2022-03-24] MEDS: SODIUM CHLORIDE 0.9% IV 1,000 ML 999 ML IV CONT (21:50)
[2022-03-24 21:55] VITALS: BP 118/79; PULSE 70; RESP 18; O2SAT 97
[2022-03-24] MEDS: GLUCAGON FOR INJ 1 MG VIAL IM (22:14)
[2022-03-24 22:36] LABS: Glucose Point of Care 66 mg/dl (65-105)
[2022-03-24 23:26] LABS: Glucose Point of Care 84 mg/dl (65-105)
[2022-03-25 00:17] VITALS: PULSE 70; RESP 16; O2SAT 98
== END 2022-03-25 00:20 | disposition home or self-care (01) ==
PROVIDERS: Physician Assistant; Emergency Provider Emergency Medicine; PCP Family Medicine
DX: E11.649 Type 2 diabetes mellitus with hypoglycemia without coma (principal); C14.0 Malignant neoplasm of pharynx, unspecified; B18.9 Chronic viral hepatitis, unspecified; Z87.891 Personal history of nicotine dependence; Z79.84 Long term (current) use of oral hypoglycemic drugs; Z79.899 Other long term (current) drug therapy
CPT/HCPCS: 36415; 80053; 82550; 82948; 85025; 96361; 96365; 96372; 99284; J0131; J1610; J7030

== ENCOUNTER 2022-04-28 08:01 | Outpatient (CLI) | payer MEDICARE, SELFPAY ==
[2022-04-28 20:13] LABS: Alanine Aminotransferase 21 U/L (6-50); Albumin Level 3.8 g/dL (3.5-5.1); Alkaline Phosphatase 57 U/L (38-126); Anion Gap 8 mmol/L (8-16); Aspartate Amino Transferase 33 U/L (17-59); Bilirubin,Total 0.9 mg/dL (0.2-1.3); Blood Urea Nitrogen 16 mg/dL (9-20); Carbon Dioxide 29 mmol/L (22-30); Chloride 100 mmol/L (98-107); Estimated Glomerular Filt Rate > 60; Glucose 113 mg/dL (65-110); Potassium 4.2 mmol/L (3.4-5.0); Sodium 137 mmol/L (137-145)
[2022-04-28 20:26] LABS: Hemoglobin A1C 5.9 % (<5.7)
== END 2022-04-28 08:02 | disposition home or self-care (01) ==
LOC: ANHGOSHLAB 08:07
PROVIDERS: PCP Family Medicine; Visit Provider Family Medicine
DX: E11.65 Type 2 diabetes mellitus with hyperglycemia (principal); Z79.899 Other long term (current) drug therapy
CPT/HCPCS: 36415; 80053; 83036

== ENCOUNTER 2023-12-30 10:04 | Outpatient (CLI) | payer MEDICARE, SELFPAY ==
[2023-12-30 20:12] LABS: Hemoglobin A1C 7.7 % (<5.7)
[2023-12-30 20:22] LABS: Alanine Aminotransferase 35 U/L (6-50); Albumin Level 4.7 g/dL (3.5-5.1); Alkaline Phosphatase 65 U/L (38-126); Anion Gap 7 mmol/L (4-12); Aspartate Amino Transferase 43 U/L (17-59); Bilirubin,Total 1.3 mg/dL (0.2-1.3); Blood Urea Nitrogen 18 mg/dL (9-20); Calcium 10.1 mg/dL (8.4-10.2); Carbon Dioxide 29 mmol/L (22-30); Chloride 103 mmol/L (98-107); Cholesterol 185 mg/dL (0-200); Estimated Glomerular Filt Rate > 60; Glucose 159 mg/dL (65-110); HDL Direct 58 mg/dL; Sodium 139 mmol/L (137-145); Triglycerides 88 mg/dL (<150)
[2023-12-30 20:31] LABS: Hematocrit 54.3 % (42.0-52.0); Mean Corpuscular HGB Conc 33.1 g/dl (32-36); Mean Corpuscular Hemoglobin 31.6 pg (26-34); Mean Corpuscular Volume 95.3 fl (80-100); Mean Platelet Volume 10.9 fl (7.4-10.4); Platelet Count Result 224 k/mm3 (150-375); Red Cell Distribution Width 13.1 % (11.5-14.5); White Blood Count 6.1 K/mm3 (4.5-10.0)
[2023-12-30 20:34] LABS: LDL Cholesterol Direct 111 mg/dL
[2023-12-30 20:52] LABS: Creatinine Urine 63.5 mg/dL
[2023-12-30 20:58] LABS: Prostate Specific Antigen 0.8 ng/mL (< OR = 4.0)
[2023-12-30 21:42] LABS: MALB Creatinine Ratio < 9.4 mg/g (0-30); Microalbumin Urine Random < 6.0 mg/L (0-16.7)
== END 2023-12-30 10:05 | disposition home or self-care (01) ==
PROVIDERS: PCP Family Medicine; Visit Provider Nurse Practitioner Family
DX: E11.65 Type 2 diabetes mellitus with hyperglycemia (principal); Z12.5 Encounter for screening for malignant neoplasm of prostate; I10 Essential (primary) hypertension
CPT/HCPCS: 36415; 80053; 80061; 82043; 83036; 84153; 84443; 85027; G0103

== ENCOUNTER 2024-01-13 06:42 | Day surgery (SDC) | payer MEDICARE, SELFPAY ==
[2023-12-31 07:33] VITALS: BMI 23.6
[2024-01-13] MEDS: LACTATED RINGERS 1,000 ML 150 ML IV CONT (09:29)
[2024-01-13 09:30] VITALS: BP 133/97; PULSE 66; RESP 18; TEMP 36.6; O2SAT 100; BMI 22.9
--- NOTE | 2024-01-13 09:32 | PM.HPGS ---
History of Present Illness History of Present Illness Consent: Risks, benefits, and alternatives have been discussed and questions answered. Patient agrees to proceed with procedure. Chief complaint: Personal History of Colonic Polyps Narrative: Oren De Los Santos is a 68 year old male presents for screening colonoscopy. Is a history of a benign adenomatous colon polyp removed from the colon in 2018. Patient's current weight appetite and bowel habits are normal. Patient denies abdominal pain. He has had no bleeding. Family history is noncontributory. 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 Review of Systems Review of Systems: All systems reviewed & are unremarkable except as noted in HPI and below PMFSH Past Medical History Medical History Acute periodontal abscess Alcoh dep NEC/NOS, unspec Chronic viral hepatitis Former cigarette smoker Odynophagia Submandibular lymphadenopathy Type 2 diabetes mellitus with hyperglycemia Surgical History Surgical History History of tonsillectomy S/P appendectomy Family History Family History Mother Diabetes mellitus Patient's mother is Family history of kidney disease Father Patient's father is Family history of cardiovascular disease Other Family history of mental disorder Social History Social History Smoking packs per day: 1 Smoking cigarettes per day: 20.0 Years smoked: 20 Smoking pack-years: 20.00 Smoking status: Former smoker Tobacco type: cigarettes Second hand tobacco smoke exposure: No Smoking end date: 10/08/06 Additional smoking assessment comments: STATES SMOKED 1-2PK/DAY/30YRS-QUIT AGE 50 Alcohol intake: never Substance use: never Substance use type: does not use Lack of Transportation: No Lack of Food: Never True Current Housing: I Have Housing Concerned About Future Housing: No Difficulty Paying Gas/Electric Bills: No Difficulty Paying for Meds: No Currently Unemployed: No Education: Associate Degree Difficulty w/ Childcare or Family Care: No Living arrangements: alone Spiritual care concerns: No Meds Home Medications and Allergies Home Medications Medication Instructions Recorded Confirmed Type blood sugar diagnostic (Accu-Chek #100 ea 11/01/19 01/08/24 Rx Guide test strips) lancets 33 gauge #100 ea 11/01/19 01/08/24 Rx empagliflozin 10 mg tablet See Rx Instructions .Route 12/31/22 01/13/24 Rx (Jardiance) .COMPLEX #90 tabs tadalafil 20 mg tablet (Cialis) 20 mg PO DAILY PRN sexual activity 11/06/23 01/13/24 Rx #60 tabs tirzepatide 2.5 mg/0.5 mL 2.5 mg (0.5 mL) subcut WEEKLY #6 mL 12/30/23 01/13/24 Rx subcutaneous pen injector (Mounjaro) multivitamin 1 tablet PO DAILY 01/08/24 01/13/24 History Allergies Allergy/AdvReac Type Severity Reaction Status Date / Time No Known Allergies Allergy Verified 01/13/24 09:14 Vital Signs Vital Signs - 24 hr 01/13/24 09:30 Temperature 97.8 F Pulse Rate 66 Respiratory Rate 18 Blood Pressure 133/97 H Pulse Oximetry 100 Oxygen Delivery Room Air Exam Narrative: Physical exam reveals patient to be alert. Vital signs stable. HEENT exam is unremarkable. Patient is anicteric. Lungs are clear to auscultation and to percussion. Heart is without murmur or extra sounds. Abdomen bowel sounds are present soft nontender with no organomegaly. Digital external rectal exam is normal. Assessment and Plan Assessment and plan (1) History of colon polyps: Code(s): Z86.010 - Personal history of colonic polyps Status: Acute Assessment and Plan: Has a history of a benign adenomatous colon polyp remov
[2024-01-13 09:36] LABS: Glucose Point of Care 138 mg/dl (65-105)
--- NOTE | 2024-01-13 10:20 | WPDANESEPPF ---
Anes - Initial Pre Proc Eval Procedure: Operation Date: 01/13/24 09:00 Proposed Procedures p Diagnostic Colonoscopy - Mihai Zurita MD Date/Time: 01/13/24 10:20 Surgeon: Mihai Zurita MD Pre Op Diagnosis: Personal History of Colonic Polyps Patient Data Age: 68 Gender: M Height: 1.75 m Weight: 70.6 kg Last Vital Signs Temp 36.6 C 01/13/24 09:30 Pulse 66 01/13/24 09:30 Resp 18 01/13/24 09:30 BP 133/97 H 01/13/24 09:30 Pulse Ox 100 01/13/24 09:30 O2 Del Method Room Air 01/13/24 09:30 Allergies Allergy/AdvReac Type Severity Reaction Status Date / Time No Known Allergies Allergy Verified 01/13/24 09:14 Home Medications Medication Instructions Recorded Confirmed Type blood sugar diagnostic (Accu-Chek #100 ea 11/01/19 01/08/24 Rx Guide test strips) lancets 33 gauge #100 ea 11/01/19 01/08/24 Rx empagliflozin 10 mg tablet See Rx Instructions .Route 12/31/22 01/13/24 Rx (Jardiance) .COMPLEX #90 tabs tadalafil 20 mg tablet (Cialis) 20 mg PO DAILY PRN sexual activity 11/06/23 01/13/24 Rx #60 tabs tirzepatide 2.5 mg/0.5 mL 2.5 mg (0.5 mL) subcut WEEKLY #6 mL 12/30/23 01/13/24 Rx subcutaneous pen injector (Mounjaro) multivitamin 1 tablet PO DAILY 01/08/24 01/13/24 History Laboratory Tests 01/13/24 09:25 POC Capillary Glucose 138 H mg/dl (65-105) Patient hx anesthesia problems: none Family hx anesthesia problems: none Results Review: All pre-operative results and documents have been reviewed as part of the pre-operative evaluation. [facility] Past Medical History Medical History Acute periodontal abscess Alcoh dep NEC/NOS, unspec Chronic viral hepatitis Former cigarette smoker Odynophagia Submandibular lymphadenopathy Type 2 diabetes mellitus with hyperglycemia Surgical History Surgical History History of tonsillectomy S/P appendectomy Family History Family History Mother Diabetes mellitus Patient's mother is Family history of kidney disease Father Patient's father is Family history of cardiovascular disease Other Family history of mental disorder Social History Social History Smoking packs per day: 1 Smoking cigarettes per day: 20.0 Years smoked: 20 Smoking pack-years: 20.00 Smoking status: Former smoker Tobacco type: cigarettes Second hand tobacco smoke exposure: No Smoking end date: 10/08/06 Additional smoking assessment comments: STATES SMOKED 1-2PK/DAY/30YRS-QUIT AGE 50 Alcohol intake: never Substance use: never Substance use type: does not use Lack of Transportation: No Lack of Food: Never True Current Housing: I Have Housing Concerned About Future Housing: No Difficulty Paying Gas/Electric Bills: No Difficulty Paying for Meds: No Currently Unemployed: No Education: Associate Degree Difficulty w/ Childcare or Family Care: No Living arrangements: alone Spiritual care concerns: No Anes - Eval Final PreProcedure Day of Procedure 01/13/24 10:20 Patient weight: normal Heart: regular rate and rhythm Lungs: clear to auscultation Airway: Mallampati scale class II Neurological: alert and oriented Last oral intake: >/= 8 hours ASA classification: III Emergent: no Anesthetic plan: proceed Anesthesia type and monitoring: general GIVS and standard monitoring Results Review: All pre-operative results and documents have been reviewed as part of the pre-operative evaluation. Informed Consent: The patient's anesthetic plan and its attendant risks and benefits were discussed with the patient/family/POA. Questions were solicited and answers provided to the satisfaction of the patient/family/POA.
[2024-01-13 10:54] VITALS: BP 112/76; PULSE 67; RESP 14; O2SAT 100
[2024-01-13 11:04] VITALS: BP 110/83; PULSE 66; RESP 13; O2SAT 100
[2024-01-13 11:14] VITALS: BP 125/74; PULSE 62; RESP 14; O2SAT 100
--- NOTE | 2024-01-13 11:22 | WPDANESPN ---
Anes - Prog Note Post-Op Date/Time: 01/13/24 11:22 Cardiovascular status: normal Respiratory status: normal Airway patency: baseline Mental status: baseline Post-Op hydration status: normal Vital Signs: Last Vital Signs Temp 36.6 C 01/13/24 09:30 Pulse 66 01/13/24 11:04 Resp 13 01/13/24 11:04 BP 110/83 01/13/24 11:04 Pulse Ox 100 01/13/24 11:04 O2 Del Method Room Air 01/13/24 11:04 Pain Score (VAS): 0/10 I/O: Intake & Output 01/12/24 01/13/24 01/13/24 23:59 07:59 15:59 Intake Total 500 Balance 500 01/13/24 09:25 POC Capillary Glucose 138 H Patient Feedback: Patient satisfied with anesthetic care.
== END 2024-01-13 11:27 | disposition home or self-care (01) ==
PROVIDERS: PCP Family Medicine; Visit Provider Internal Medicine Gastroenterology
PROC: 0DJD8ZZ Inspection of Lower Intestinal Tract, Via Natural or Artificial Opening Endoscopic (ICD-10-PCS; CPT 45378; principal; 2024-01-13 09:00)
DX: Z86.010 Personal history of colon polyps (principal); D12.3 Benign neoplasm of transverse colon; D12.5 Benign neoplasm of sigmoid colon; D12.8 Benign neoplasm of rectum; K64.8 Other hemorrhoids
CPT/HCPCS: 45385

== ENCOUNTER 2024-01-13 12:26 | Outpatient (NON) | payer MEDICARE, SELFPAY | END 2024-01-13 12:27 | disposition home or self-care (01) | LOC: ANHLAB 01-14 12:28 | PROVIDERS: PCP Family Medicine; Visit Provider Internal Medicine Gastroenterology | DX: Z86.010 Personal history of colon polyps (principal) | CPT/HCPCS: 88305 ==